=== PATIENT | male | born 1955 | race Two or more races ===

== ENCOUNTER 2018-08-22 17:14 | Emergency (ER) | payer OTHER ==
[~2018-08-22] VITALS: Ht 182.9 cm; Wt 97.5 kg
[2018-08-22 17:23] VITALS: BP 145/70
[2018-08-22] MEDS ORDERED: LANS30CA54 PO (17:30)
[2018-08-22] MEDS ORDERED: HYDR4TAB4 PO (17:30)
[2018-08-22] MEDS ORDERED: IBUPROFEN 600 MG TABLET PO ONE ×2 (17:54→18:00)
[2018-08-22] MEDS ORDERED: HYDROMORPHONE 1 MG/1 ML DISP.SYRIN ONE (17:54)
[2018-08-22] MEDS ORDERED: HYDROMORPHONE 1 MG/1 ML DISP.SYRIN IM ONE (18:00)
== END 2018-08-22 19:02 ==
LOC: ER 17:28
DX: G89.29 Other chronic pain (principal); G62.9 Polyneuropathy, unspecified; Z86.19 Personal history of other infectious and parasitic diseases; Z79.899 Other long term (current) drug therapy
CPT/HCPCS: J1170; L0172